=== PATIENT | male | born 1955 | race Caucasian/White ===

== ENCOUNTER 2017-01-11 03:07 | Inpatient (IN) | payer OTHER ==
[2017-01-11] VITALS (23 sets, daily range): BP systolic 66–130; BP diastolic 41–79
[~2017-01-11] VITALS: Ht 165.1 cm; Wt 74.4 kg
--- NOTE | 2017-01-11 04:40 | ED NURSING NOTES ---
Clinical Report - Nurses [facility] [address] [place] [address] 01/11/2017 3:08 Patient: MONA BERNAL TRIAGE Triage time 03:09. Acuity: LEVEL 3. Chief Complaint: VOMITING and (vomited blood). Alert. No acute distress. SEPSIS SCREEN: Sepsis Screen. Negative (no infection suspected/documented). --03:16 Jatinder Perdomo R.N. 03:09 01/11/17. BP: 133/82. HR: 75. RR: 20. O2 saturation: 100%. Temp: 97.8 F. Pain level now: 0/10. --03:16 Jatinder Perdomo R.N. Weight: 68 kg stated. Height/Length: 65 inches Per Patient. BMI: 25. --03:17 Jatinder Perdomo R.N. Medications Tramadol HCL Oral. --03:13 Jatinder Perdomo R.N. Unknown Blood Pressure Medicine. --03:14 Jatinder Perdomo R.N. Unknown GERD medicine. --03:15 Jatinder Perdomo R.N. Allergies Penicillins. --03:12 Jatinder Perdomo R.N. History Arrived by EMS, and (63). Historian: patient. Unaccompanied. This started just prior to arrival and today. He has had nausea and vomiting. ( dizzy). SOCIAL HX: Former smoker. History of drug use: heroin. Is a recovering addict. --03:16 Jatinder Perdomo R.N. PROBLEMS: Gastroesophageal Reflux Disease. Esophageal Varices. Cirrhosis. Hepatitis. --03:15 Jatinder Perdomo R.N. ADDITIONAL SURGERIES: Cholecystectomy. Esophageal varicies banding. Fracture Repair. Hernia Repair. --03:15 Jatinder Perdomo R.N. Interventions ID band on patient. To treatment room. --03:16 Jatinder Perdomo R.N. PHYSICAL ASSESSMENT ( dried blood observed around mouth of patient). GENERAL / NEURO / PSYCH: Alert. Oriented X 4. RESPIRATORY: Respirations not labored. GI / : Abdomen soft. SKIN: Skin is warm and dry. --03:17 Jatinder Perdomo R.N. 03:45 01/11/17. O2 saturation: 96% on room air. --03:48 Jatinder Perdomo R.N. 03:48 01/11/17. O2 saturation: 99% on nasal cannula at 2 liters/minute. O2 started via nasal cannula at 2 liters/minute. --03:48 Jatinder Perdomo R.N. CVS: Normal sinus rhythm noted. ( Normal sinus rhythm on desk monitor). SKIN: Skin is pale. Skin is warm and dry. --03:49 Jatinder Perdomo R.N. 04:57 01/11/17. BP: 113/69. HR: 67 (regular). RR: 18. O2 saturation: 99% on nasal cannula at 2 liters/minute. --04:58 Jatinder Perdomo R.N. NURSING PROGRESS NOTES Pulse oximeter and NIBP monitor placed on patient. Patient gowned. Head of bed elevated. Reassurance given. Two patient identifiers checked. Call light placed in reach. Side rails up x 1. Bed placed in lowest position. Brakes of bed on. Patient ready for evaluation- chart flagged. Patient waiting for evaluation. --03:18 Jatinder Perdomo R.N. EKG time: (03:18 Jan 11 2017). EKG was performed by a tech and shown to the ED physician. --03:20 Bacilio Palmer 04:14 01/01/17. --04:15 Clem Jimenes R.N. 03:18 01/11/2017 Site #2 started via IV in the left forearm with an 18g angiocath, with aseptic technique and good blood return; one attempt. Saline lock flushed with 10 mL saline. --04:13 Clem Jimenes R.N. 03:31 01/11/2017 Site #1 started prior to arrival by EMS via IV in the right hand with an 18g angiocath, with good blood return. Blood drawn: rainbow set. Labeled in the presence of the patient and sent to the lab. --03:41 Jatinder Perdomo R.N. 03:31 01/11/2017 PROTONIX (Pantoprazole Sodium) IVP 80 mg given over 5 minute(s) via site #1. Allergies verified and confirmed 5 rights. IV patency established. IV site checked: no pain, redness, or swelling. IV flushed thoroughly pre- and post-medication administration. IVP given by RN. --03:41 Jatinder Perdomo R.N. 03:34 01/11/2017 Zofran (Ondansetron HCl) IVP 8 mg given over 2 minute(s) via site #1. Allergies verified and confirmed 5 rights. IV patency established. IV site checked: no pain, redness, or swelling. IV flushed thoroughly pre- and post-medication administration. --03:42 Jatinder Perdomo R.N. 03:41 01/11/2017 Started bag #1 1000 mL IV Fluids IV NS (Saline); at 1000 mL/hr over 1 hour(s) via site #1. Allergies verified and confirmed 5 rights. IV patency established. IV site checked: no pain, redness, or swelling. IV flushed thoroughly pre- and post-medication administration. Completed per protocol. --03:41 Jatinder Perdomo R.N. ( Octreotide requested from the housekeeper supervisor---med not stocked in ER.). --03:43 Jatinder Perdomo R.N. 04:00 01/11/2017 Octreotide (Octreotide Acetate) IVP 50 mcg given over 2 minute(s) via site #1. Allergies verified and confirmed 5 rights. IV patency established. IV site checked: no pain, redness, or swelling. IV flushed thoroughly pre- and post-medication administration. --04:02 Clem Jimenes R.N. 04:02 01/11/2017 Started 300 mcg of Octreotide (Octreotide Acetate) Drip IV in bag #1 250 mL; at 50 mcg/hr over 6 hour(s) via site #1 via IV pump. Allergies verified and confirmed 5 rights. IV patency established. IV site checked: no pain, redness, or swelling. IV flushed thoroughly pre- and post-medication administration. --04:04 Clem Jimenes R.N. 04:12 01/11/2017 Dilaudid (HYDROmorphone HCl PF) IVP 0.5 mg given over 2 minute(s) via site #2. Allergies verified, confirmed 5 rights and sedative warning given to the patient. IV patency established. IV site checked: no pain, redness, or swelling. IV flushed thoroughly pre- and post-medication administration. --04:14 Clem Jimenes R.N. 02:45 01/11/17. BP: 133/82. RR: 16. O2 saturation: 100% on room air. --05:07 Clem Jimenes R.N. --05:07 Clem Jimenes R.N. 03:45 01/11/17. BP: 117/65. HR: 69. RR: 17. O2 saturation: 100% on room air. --05:08 Clem Jimenes R.N. 04:15 01/11/17. BP: 118/69. HR: 68. RR: 16. O2 saturation: 100% on room air. --05:09 Clem Jimenes R.N. 04:45 01/11/17. BP: 113/69. HR: 65. RR: 16. O2 saturation: 99% on room air. --05:10 Clem Jimenes R.N. 04:41 01/11/2017 IV Fluids IV NS Discontinued: completed. Total amount infused: 1000 mL. IV patency established. IV site checked: no pain, redness, or swelling. IV flushed thoroughly. --05:57 Jatinder Perdomo R.N. 05:25 01/11/2017 Octreotide Drip IV Continued: upon admission at the rate of 50 mcg/hr bag #1. IV patency established. IV site checked: no pain, redness, or swelling. IV flushed thoroughly. --05:59 Jatinder Perdomo R.N. DISPOSITION / DISCHARGE Cardiac rhythm: (NSR). Departure time: 524. Condition at departure: critical. Reviewed medication(s). Treatments reviewed. Patient verbalized understanding. Admitted to the Critical Care Unit (to [facility] care, bed 306). Transported via stretcher by nurse with monitor and O2. Report was given to a nurse via a phone call. Report included patient's care, treatment, medications, reviewed medication reconcilliation, and condition (including any recent changes or anticipated changes). All questions were answered. Report was acknowledged. ( [place] [id number]). Patient's personal items include: shirt, pants, socks, shoes, wallet and cell phone, a lópez colored box; items were transported with the patient. --05:53 Jatinder Perdomo R.N. 04:57 01/11/17. BP: 113/69. HR: 67 (regular). RR: 18. O2 saturation: 99% on nasal cannula at 2 liters/minute. --05:56 Jatinder Perdomo R.N. Locked/Released at 01/11/2017 5:59 by Jatinder Perdomo R.N.
--- NOTE | 2017-01-11 04:40 | ED ORDER SUMMARY ---
..... Patient: MONA BERNAL OrderSheet [facility] VisitID: [id number] [place] [address] 61y, M Registration Date/Time: 01/11/2017 ORDER SHEET Weight: 68.0 kg (stated) Allergies: Penicillins GENERAL ORDERS: Printing Plate Clerk (Continuous) (03:01/11/2017 Sabina LAMA) (3:41 DDavis R.N.) CBC w Diff Urgent (03:01/11/2017 Sabina LAMA) (3:41 DDavis R.N.) CMP Urgent (:01/11/2017 Sabina LAMA) (3:41 DDavis R.N.) PT with INR Urgent (:01/11/2017 Sabina LAMA) (3:41 DDavis R.N.) Type & Screen Urgent (:01/11/2017 Sabina LAMA) (3:41 DDavis R.N.) Pulse oximeter (:01/11/2017 Sabina LAMA) (3:41 DDavis R.N.) EKG - ER Stat (:01/11/2017 Sabina LAMA) (3:41 DDavis R.N.) Oxygen (2 L/min) (NC) (:01/11/2017 Sabina LAMA) (3:42 DDavis R.N.) MEDICATION ORDERS: - (Octreotide 50 mcg IV bolus, then 50 mcg/hr infusion) (03:01/11/2017 Sabina LAMA) (Ack 3:42 DDavis R.N.) (4:02 JQuivey R.N.) IV FLUIDS: IV NS : initial bolus 1000 mL (1000 mL/hr), then none - (NOW) (03:01/11/2017 Sabina LAMA) (3:41 DDavis R.N.) Zofran IV 8 mg (NOW) (:01/11/2017 Sabina LAMA) (3:42 DDavis R.N.) Protonix IVP 80mg 80 mg (Mix in NS 20ml over 4min) (:01/11/2017 Sabina LAMA) (3:41 DDavis R.N.) Dilaudid IV 0.5 mg (HIGH ALERT MEDICATION, NOW) (04:07 01/11/2017 Cj Gonzalez verbal order read back to Sabina LAMA) (Ack 4:07 Cj R.N.) (4:14 Cj Guy.N.) ORDER SHEET NOTES: [Electronically signed by Ro Luciano MD (05:17 01/11/2017)] [Electronically signed by Jatinder Perdomo R.N. (05:59 01/11/2017)] [Electronically locked/signed by Jatinder Perdomo R.N. (05:59 01/11/2017)]
--- NOTE | 2017-01-11 04:40 | ED CLINICAL REPORT ---
Clinical Report - Physicians/Mid Levels [facility] [address] [place] [address] 01/11/2017 3:08 Patient: MONA BERNAL Time Seen: 0308. Arrived- By ambulance. Historian- patient and EMS personnel. HISTORY OF PRESENT ILLNESS Chief Complaint: VOMITING BLOOD. This started just prior to arrival, has been moderate and is still present but is better now. The patient has not had dark stools, rectal bleeding or pain or hard stools. He has had nausea, vomiting and abdominal pain. No constipation or diarrhea. (Pt has a h/o esophageal varices, due to former hepatitis (pt states he went through treatment with [facility], and is now considered cured). Pt has residual cirrhosis and esophageal varices. 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 He states this is the same as when he had his variceal bleed previously. He pulled over and vomited several times. Medics estimate about 400-500 cc of bloody emesis on scene, but no further emesis since. Pt states he is feeling a little better. He denies complications after his banding procedure one week ago.). No recent travel. Similar symptoms previously: Recent medical care: The patient was seen recently at another facility. ( Pt had his 3rd banding procedure 1 week ago, at which time 1 vessel was banded (pt has had a total of 12 vessels banded on the previous 2 procedures, both of which have been done since April of 2016).). REVIEW OF SYSTEMS The patient has had dizziness. No fainting episodes, weakness, fever, blurred vision or sore throat. No epistaxis, cough, difficulty breathing, chest pain or hematuria. No skin rash, enlarged lymph nodes, chills or joint pain. All systems otherwise negative, except as recorded above. PAST HISTORY Problems: Gastroesophageal Reflux Disease. Esophageal Varices. Cirrhosis. Hepatitis. Additional Surgeries: Cholecystectomy. Esophageal varicies banding. Fracture Repair. Hernia Repair. Medications: Unknown GERD medicine. Unknown Blood Pressure Medicine. Tramadol HCL Oral. Allergies: Penicillins. SOCIAL HISTORY Former smoker. History of IV drug use: heroin. Is a recovering addict. ADDITIONAL NOTES The nursing notes have been reviewed. PHYSICAL EXAM Vital Signs: 01/11/2017 03:09 BP: 133/82. HR: 75. RR: 20. O2 saturation: 100%. Temp: 97.8 F. Pain level now: 0/10. 01/11/2017 02:45 BP: 133/82. RR: 16. O2 saturation: 100%. Have been reviewed. Appearance: Alert. Oriented X3. No acute distress. (PT appears mildly pale and slightly tremulous.). Eyes: Pupils equal, round and reactive to light. Eyes normal inspection. ENT: Nose normal. Neck: Normal inspection. CVS: Normal heart rate and rhythm. Heart sounds normal. Pulses normal. Respiratory: No respiratory distress. Breath sounds normal. Abdomen: Soft. Mild tenderness in the epigastric area. No guarding or rebound tenderness. Back: Normal inspection. No CVA tenderness. Skin: Skin warm and dry. No rash. Normal skin turgor. Slight pallor. Extremities: Extremities exhibit normal ROM. No lower extremity edema. Neuro: Oriented X 3. No motor deficit. No sensory deficit. LABS, X-RAYS, AND EKG EKG: EKG time: (0319). Normal sinus rhythm. Rate: 79. Normal P waves. Normal DEANA. Normal QRS complex. Normal axis. Normal QT and QTc. Non-specific ST segment / T wave abnormalities. Prior EKG unavailable. The study has been interpreted contemporaneously by me. The study has been independently viewed by me. The EKG appears to be a good tracing. I agree with and confirm the computer reading of the EKG. Laboratory Tests: CBC w Diff: (ARNULFO: 01/11/2017 03:25) ( MsgRcvd 01/11/2017 03:39) Final results Test Result Flag Units (Reference) WHITE BLOOD COUNT 3.3 L K/uL (4.5-11.5) RED BLOOD COUNT 3.45 L M/uL (4.50-5.90) HEMOGLOBIN 10.1 L gm/dL (13.5-17.5) HEMATOCRIT 30.6 L % (41.0-53.0) MEAN CELL VOLUME 89 fL (80-100) MEAN CORPUSCULAR HGB 29 pg (26-34) MEAN CORPUSCULAR HGB CONC 33 g/dL (31-37) RED CELL DISTRIBUTION WIDTH 15.5 H % (11.6-14.8) PLATELET COUNT 88 L K/uL (150-400) NEUTROPHIL % 64.6 % (50-75) LYMPH % 22.8 L % (25-40) MONO % 9.0 % (3-14) EOSINOPHIL % 3.3 % (0-4) BASOPHIL % 0.3 % (0-2) PT with INR: (ARNULFO: 01/11/2017 03:25) ( [facility] 01/11/2017 03:46) Final results Test Result Flag Units (Reference) INR 1.3 H (0.8-1.2) Low Intensity Therapy: INR 1.5-2.0 PT range 18.5-23.1Mod.Intensity Therapy: INR 2.0-3.0 PT range 23.1-31.5High Intensity Therapy: INR 2.5-3.5 PT range 27.4-35.5High Intensity Therapy 2: INR 3.0-4.0 PT range 31.5-39.3 CMP: (ARNULFO: 01/11/2017 03:25) ( [facility] 01/11/2017 04:05) Final results Test Result Flag Units (Reference) GLUCOSE 117 H mg/dL (70-110) BUN 25 H mg/dL (7-18) CREATININE 0.9 mg/dL (0.6-1.3) Estimated GFR >60 mL/min Estimated GFR- >60 mL/min Note: Persistent reduction over 3 months in eGFR<60 mL/min/1.73 m2 defines CKD. Patients with eGFR values>=60 mL/min/1.73 m2 may also have CKD if evidence ofpersistent proteinuria. Additional information may be foundat www.kidney.org. SODIUM 147 H mmol/L (136-145) POTASSIUM 3.5 mmol/L (3.5-5.1) CHLORIDE 113 H mmol/L (98-107) CARBON DIOXIDE 24 mmol/L (21-32) CALCIUM 8.2 L mg/dL (8.5-10.1) TOTAL PROTEIN 6.0 L g/dL (6.4-8.2) ALBUMIN 2.9 L g/dL (3.3-5.0) BILIRUBIN, TOTAL 0.3 mg/dL (0.0-1.0) ALKALINE PHOSPHATASE 67 U/L (46-116) AST (SGOT) 13 L U/L (15-37) ALT (SGPT) 17 U/L (12-78) Type & Screen: (ARNULFO: 01/11/2017 03:25) ( MsgRcvd 01/11/2017 04:08) Final results Test Result Flag Units (Reference) PATIENT BLOOD TYPE O Positive ANTIBODY SCREEN NEGATIVE . Pulse Oximetry: 01/11/2017 03:09 O2 saturation: 100%. (FIO2 - room air). Interpretation: normal. PROGRESS AND PROCEDURES Course of Care: Pt was given a liter of NS, Zofran, and an Octreotide drip. He remained stable in the ED, and had no further episodes of vomiting. He was also given a small dose of Dilaudid. Pt was found to be moderately anemic at 10.1, and thrombocytopenic at 88. I did feel the pt should be admitted for observation. Discussed case with on-call health care provider, (Imani). Reviewed test results and need for additional work-up. Agreed upon treatment plan and decision to admit. Health care provider will see patient in hospital. Refers case to other health care provider. Discussed case with hospitalist, (Niraj). Reviewed test results and need for additional work-up. Agreed upon treatment plan and decision to admit. Health care provider will see patient in hospital. Patient counseled in person regarding the patient's stable but serious condition, test results, diagnosis and need for additional testing and admission. Concerns were addressed. Old medical records reviewed. Disposition: Admitted to Acute Care. Condition: stable and serious. CLINICAL IMPRESSION Major GI bleed with hematemesis. Esophageal varices with GI bleed. (Electronically signed by Ro Luciano MD 01/11/2017 5:17)
--- NOTE | 2017-01-11 04:40 | ED NURSING NOTES ---
Clinical Report - Nurses [facility] [address] [place] [address] 01/11/2017 3:08 Patient: MONA BERNAL TRIAGE Triage time 03:09. Acuity: LEVEL 3. Chief Complaint: VOMITING and (vomited blood). Alert. No acute distress. SEPSIS SCREEN: Sepsis Screen. Negative (no infection suspected/documented). --03:16 Jatinder Perdomo R.N. 03:09 01/11/17. BP: 133/82. HR: 75. RR: 20. O2 saturation: 100%. Temp: 97.8 F. Pain level now: 0/10. --03:16 Jatinder Perdomo R.N. Weight: 68 kg stated. Height/Length: 65 inches Per Patient. BMI: 25. --03:17 Jatinder Perdomo R.N. Medications Tramadol HCL Oral. --03:13 Jatinder Perdomo R.N. Unknown Blood Pressure Medicine. --03:14 Jatinder Perdomo R.N. Unknown GERD medicine. --03:15 Jatinder Perdomo R.N. Allergies Penicillins. --03:12 Jatinder Perdomo R.N. History Arrived by EMS, and (63). Historian: patient. Unaccompanied. This started just prior to arrival and today. He has had nausea and vomiting. ( dizzy). SOCIAL HX: Former smoker. History of drug use: heroin. Is a recovering addict. --03:16 Jatinder Perdomo R.N. PROBLEMS: Gastroesophageal Reflux Disease. Esophageal Varices. Cirrhosis. Hepatitis. --03:15 Jatinder Perdomo R.N. ADDITIONAL SURGERIES: Cholecystectomy. Esophageal varicies banding. Fracture Repair. Hernia Repair. --03:15 Jatinder Perdomo R.N. Interventions ID band on patient. To treatment room. --03:16 Jatinder Perdomo R.N. PHYSICAL ASSESSMENT ( dried blood observed around mouth of patient). GENERAL / NEURO / PSYCH: Alert. Oriented X 4. RESPIRATORY: Respirations not labored. GI / : Abdomen soft. SKIN: Skin is warm and dry. --03:17 Jatinder Perdomo R.N. 03:45 01/11/17. O2 saturation: 96% on room air. --03:48 Jatinder Perdomo R.N. 03:48 01/11/17. O2 saturation: 99% on nasal cannula at 2 liters/minute. O2 started via nasal cannula at 2 liters/minute. --03:48 Jatinder Perdomo R.N. CVS: Normal sinus rhythm noted. ( Normal sinus rhythm on data analyst etl developer). SKIN: Skin is pale. Skin is warm and dry. --03:49 Jatinder Perdomo R.N. 04:57 01/11/17. BP: 113/69. HR: 67 (regular). RR: 18. O2 saturation: 99% on nasal cannula at 2 liters/minute. --04:58 Jatinder Perdomo R.N. NURSING PROGRESS NOTES Pulse oximeter and NIBP monitor placed on patient. Patient gowned. Head of bed elevated. Reassurance given. Two patient identifiers checked. Call light placed in reach. Side rails up x 1. Bed placed in lowest position. Brakes of bed on. Patient ready for evaluation- chart flagged. Patient waiting for evaluation. --03:18 Jatinder Perdomo R.N. EKG time: (03:18 Jan 11 2017). EKG was performed by a tech and shown to the ED physician. --03:20 Bacilio Palmer 04:14 01/01/17. --04:15 Clem Jimenes R.N. 03:18 01/11/2017 Site #2 started via IV in the left forearm with an 18g angiocath, with aseptic technique and good blood return; one attempt. Saline lock flushed with 10 mL saline. --04:13 Clem Jimenes R.N. 03:31 01/11/2017 Site #1 started prior to arrival by EMS via IV in the right hand with an 18g angiocath, with good blood return. Blood drawn: rainbow set. Labeled in the presence of the patient and sent to the lab. --03:41 Jatinder Perdomo R.N. 03:31 01/11/2017 PROTONIX (Pantoprazole Sodium) IVP 80 mg given over 5 minute(s) via site #1. Allergies verified and confirmed 5 rights. IV patency established. IV site checked: no pain, redness, or swelling. IV flushed thoroughly pre- and post-medication administration. IVP given by RN. --03:41 Jatinder Perdomo R.N. 03:34 01/11/2017 Zofran (Ondansetron HCl) IVP 8 mg given over 2 minute(s) via site #1. Allergies verified and confirmed 5 rights. IV patency established. IV site checked: no pain, redness, or swelling. IV flushed thoroughly pre- and post-medication administration. --03:42 Jatinder Perdomo R.N. 03:41 01/11/2017 Started bag #1 1000 mL IV Fluids IV NS (Saline); at 1000 mL/hr over 1 hour(s) via site #1. Allergies verified and confirmed 5 rights. IV patency established. IV site checked: no pain, redness, or swelling. IV flushed thoroughly pre- and post-medication administration. Completed per protocol. --03:41 Jatinder Perdomo R.N. ( Octreotide requested from the warehouse examiner---med not stocked in ER.). --03:43 Jatinder Perdomo R.N. 04:00 01/11/2017 Octreotide (Octreotide Acetate) IVP 50 mcg given over 2 minute(s) via site #1. Allergies verified and confirmed 5 rights. IV patency established. IV site checked: no pain, redness, or swelling. IV flushed thoroughly pre- and post-medication administration. --04:02 Clem Jimenes R.N. 04:02 01/11/2017 Started 300 mcg of Octreotide (Octreotide Acetate) Drip IV in bag #1 250 mL; at 50 mcg/hr over 6 hour(s) via site #1 via IV pump. Allergies verified and confirmed 5 rights. IV patency established. IV site checked: no pain, redness, or swelling. IV flushed thoroughly pre- and post-medication administration. --04:04 Clem Jimenes R.N. 04:12 01/11/2017 Dilaudid (HYDROmorphone HCl PF) IVP 0.5 mg given over 2 minute(s) via site #2. Allergies verified, confirmed 5 rights and sedative warning given to the patient. IV patency established. IV site checked: no pain, redness, or swelling. IV flushed thoroughly pre- and post-medication administration. --04:14 Clem Jimenes R.N. 02:45 01/11/17. BP: 133/82. RR: 16. O2 saturation: 100% on room air. --05:07 Clem Jimenes R.N. --05:07 Clem Jimenes R.N. 03:45 01/11/17. BP: 117/65. HR: 69. RR: 17. O2 saturation: 100% on room air. --05:08 Clem Jimenes R.N. 04:15 01/11/17. BP: 118/69. HR: 68. RR: 16. O2 saturation: 100% on room air. --05:09 Clem Jimenes R.N. 04:45 01/11/17. BP: 113/69. HR: 65. RR: 16. O2 saturation: 99% on room air. --05:10 Clem Jimenes R.N. 04:41 01/11/2017 IV Fluids IV NS Discontinued: completed. Total amount infused: 1000 mL. IV patency established. IV site checked: no pain, redness, or swelling. IV flushed thoroughly. --05:57 Jatinder Perdomo R.N. 05:25 01/11/2017 Octreotide Drip IV Continued: upon admission at the rate of 50 mcg/hr bag #1. IV patency established. IV site checked: no pain, redness, or swelling. IV flushed thoroughly. --05:59 Jatinder Perdomo R.N. DISPOSITION / DISCHARGE Cardiac rhythm: (NSR). Departure time: 524. Condition at departure: critical. Reviewed medication(s). Treatments reviewed. Patient verbalized understanding. Admitted to the Critical Care Unit (to [facility] care, bed 306). Transported via stretcher by nurse with monitor and O2. Report was given to a nurse via a phone call. Report included patient's care, treatment, medications, reviewed medication reconcilliation, and condition (including any recent changes or anticipated changes). All questions were answered. Report was acknowledged. ( [place] [phone]). Patient's personal items include: shirt, pants, socks, shoes, wallet and cell phone, a lópez colored box; items were transported with the patient. --05:53 Jatinder Perdomo R.N. 04:57 01/11/17. BP: 113/69. HR: 67 (regular). RR: 18. O2 saturation: 99% on nasal cannula at 2 liters/minute. --05:56 Jatinder Perdomo R.N. Locked/Released at 01/11/2017 5:59 by Jatinder Perdomo R.N.
--- NOTE | 2017-01-11 04:40 | ED ORDER SUMMARY ---
..... Patient: MONA BERNAL OrderSheet [facility] VisitID: [id number] [place] [address] 61y, M Registration Date/Time: 01/11/2017 ORDER SHEET Weight: 68.0 kg (stated) Allergies: Penicillins GENERAL ORDERS: File Conversion Operator (Continuous) (03:01/11/2017 Sabina LAMA) (3:41 DDavis R.N.) CBC w Diff Urgent (03:01/11/2017 Sabina LAMA) (3:41 DDavis R.N.) CMP Urgent (:01/11/2017 Sabina LAMA) (3:41 DDavis R.N.) PT with INR Urgent (:01/11/2017 Sabina LAMA) (3:41 DDavis R.N.) Type & Screen Urgent (:01/11/2017 Sabina LAMA) (3:41 DDavis R.N.) Pulse oximeter (:01/11/2017 Sabina LAMA) (3:41 DDavis R.N.) EKG - ER Stat (:01/11/2017 Sabina LAMA) (3:41 DDavis R.N.) Oxygen (2 L/min) (NC) (:01/11/2017 Sabina LAMA) (3:42 DDavis R.N.) MEDICATION ORDERS: - (Octreotide 50 mcg IV bolus, then 50 mcg/hr infusion) (03:01/11/2017 Sabina LAMA) (Ack 3:42 DDavis R.N.) (4:02 JQuivey R.N.) IV FLUIDS: IV NS : initial bolus 1000 mL (1000 mL/hr), then none - (NOW) (03:01/11/2017 Sabina LAMA) (3:41 DDavis R.N.) Zofran IV 8 mg (NOW) (:01/11/2017 Sabina LAMA) (3:42 DDavis R.N.) Protonix IVP 80mg 80 mg (Mix in NS 20ml over 4min) (:01/11/2017 Sabina LAMA) (3:41 DDavis R.N.) Dilaudid IV 0.5 mg (HIGH ALERT MEDICATION, NOW) (04:07 01/11/2017 Cj Gonzalez verbal order read back to Sabina LAMA) (Ack 4:07 Cj R.N.) (4:14 Cj Guy.N.) ORDER SHEET NOTES: [Electronically signed by Ro Luciano MD (05:17 01/11/2017)] [Electronically signed by Jatinder Perdomo R.N. (05:59 01/11/2017)] [Electronically locked/signed by Jatinder Perdomo R.N. (05:59 01/11/2017)]
--- NOTE | 2017-01-11 05:59 | ED MED RECONCILIATION SUMMARY ---
Patient: MONA BERNAL Medication Reconciliation Report [facility] VisitID: [id number] [address] [place] [address] 61y, M Registration Date/Time: 01/11/2017 Weight: 68.0 kg Height/Length: 65 in. BMI: 25.0 ALLERGIES: Penicillins The patient's Home Medications are listed below: THE FOLLOWING MEDICATIONS NEED TO BE RECONCILED: Tramadol HCL Oral Unknown Blood Pressure Medicine Unknown GERD medicine The source(s) of the original Home Medication information: Not obtained. The following Medications were given to the patient in the Emergency Department: IV NS IV Fluids bolus 0, then 1000 mL/hr, administered: 01/11/2017 3:41:00 AM PROTONIX [IVP] IVP 80 mg, administered: 01/11/2017 3:31:00 AM Zofran [IVP] IVP 8 mg, administered: 01/11/2017 3:34:00 AM Octreotide [IVP] IVP 50 mcg, administered: 01/11/2017 4:00:00 AM Octreotide [IV Drip] Drip IV bolus 0, then 300 mcg 50 mcg/hr, administered: 01/11/2017 4:02:00 AM Dilaudid [IVP] IVP 0.5 mg, administered: 01/11/2017 4:12:00 AM The following Medications were prescribed to the patient: None.
--- NOTE | 2017-01-11 05:59 | ED DISCHARGE INSTRUCTIONS ---
Patient: MONA BERNAL General Instructions [facility] VisitID: [id number] [address] [place] [address] 61y, M Registration Date/Time: 01/11/2017 Major GI bleed with hematemesis. Esophageal varices with GI bleed. (Electronically signed by Ro Luciano MD 01/11/2017 5:17)
--- NOTE | 2017-01-11 05:59 | ED DISCHARGE INSTRUCTIONS ---
Patient: MONA BERNAL General Instructions [facility] VisitID: [id number] [address] [place] [address] 61y, M Registration Date/Time: 01/11/2017 Major GI bleed with hematemesis. Esophageal varices with GI bleed. (Electronically signed by Ro Luciano MD 01/11/2017 5:17)
--- NOTE | 2017-01-11 05:59 | ED MAR SUMMARY ---
..... Medication Administration Record [facility] [address] [place] [address] Patient: MONA BERNAL Visit ID: [id number] 61y, M Weight: 68.0 kg Height/Length: 65 in BMI: 25 ALLERGIES: Penicillins Given 03:31 01/11/2017 Jatinder Perdomo R.N. Medication Administered: PROTONIX [IVP] (PANTOPRAZOLE SODIUM), Dose: 80 mg IVP over 5 minute(s), Site: #1 right hand. Medication Ordered: Protonix IVP 80mg 80 mg (Mix in NS 20ml over 4min). Given 03:34 01/11/2017 Jatinder Perdomo R.N. Medication Administered: ZOFRAN [IVP] (ONDANSETRON HCL), Dose: 8 mg IVP over 2 minute(s), Site: #1 right hand. Medication Ordered: Zofran IV 8 mg (NOW). Start 03:41 01/11/2017 Jatinder Perdomo R.N., Stop 04:41 01/11/2017 Jatinder Perdomo R.N. Medication Administered: IV NS (SALINE), Dose: IV Fluids over 1 hour(s), Rate: 1000 mL/hr, Dispensed: 1000 mL bag, Site: #1 right hand. Medication Ordered: IV NS : initial bolus 1000 mL (1000 mL/hr), then none - (NOW). Given 04:00 01/11/2017 Clem Jimenes R.N. Medication Administered: OCTREOTIDE [IVP] (OCTREOTIDE ACETATE), Dose: 50 mcg IVP over 2 minute(s), Site: #1 right hand. Medication Ordered: - (Octreotide 50 mcg IV bolus, then 50 mcg/hr infusion). Start 04:02 01/11/2017 Clem Jimenes R.N., Continued Upon Admission 05:25 01/11/2017 Jatinder Perdomo R.N. Medication Administered: OCTREOTIDE [IV DRIP] (OCTREOTIDE ACETATE), Dose: 300 mcg Drip IV over 6 hour(s), Rate: 50 mcg/hr, Dispensed: 250 mL bag, Site: #1 right hand. Medication Ordered: - (Octreotide 50 mcg IV bolus, then 50 mcg/hr infusion). Given 04:12 01/11/2017 Clem Jimenes RLeathaN. Medication Administered: DILAUDID [IVP] (HYDROMORPHONE HCL PF), Dose: 0.5 mg IVP over 2 minute(s), Site: #2 left forearm. Medication Ordered: Dilaudid IV 0.5 mg (HIGH ALERT MEDICATION, NOW).
--- NOTE | 2017-01-11 05:59 | ED MAR SUMMARY ---
..... Medication Administration Record [facility] [address] [place] [address] Patient: MONA BERNAL Visit ID: [id number] 61y, M Weight: 68.0 kg Height/Length: 65 in BMI: 25 ALLERGIES: Penicillins Given 03:31 01/11/2017 Jatinder Perdomo R.N. Medication Administered: PROTONIX [IVP] (PANTOPRAZOLE SODIUM), Dose: 80 mg IVP over 5 minute(s), Site: #1 right hand. Medication Ordered: Protonix IVP 80mg 80 mg (Mix in NS 20ml over 4min). Given 03:34 01/11/2017 Jatinder Perdomo R.N. Medication Administered: ZOFRAN [IVP] (ONDANSETRON HCL), Dose: 8 mg IVP over 2 minute(s), Site: #1 right hand. Medication Ordered: Zofran IV 8 mg (NOW). Start 03:41 01/11/2017 Jatinder Perdomo R.N., Stop 04:41 01/11/2017 Jatinder Perdomo R.N. Medication Administered: IV NS (SALINE), Dose: IV Fluids over 1 hour(s), Rate: 1000 mL/hr, Dispensed: 1000 mL bag, Site: #1 right hand. Medication Ordered: IV NS : initial bolus 1000 mL (1000 mL/hr), then none - (NOW). Given 04:00 01/11/2017 Clem Jimenes R.N. Medication Administered: OCTREOTIDE [IVP] (OCTREOTIDE ACETATE), Dose: 50 mcg IVP over 2 minute(s), Site: #1 right hand. Medication Ordered: - (Octreotide 50 mcg IV bolus, then 50 mcg/hr infusion). Start 04:02 01/11/2017 Clem Jimenes R.N., Continued Upon Admission 05:25 01/11/2017 Jatinder Perdomo R.N. Medication Administered: OCTREOTIDE [IV DRIP] (OCTREOTIDE ACETATE), Dose: 300 mcg Drip IV over 6 hour(s), Rate: 50 mcg/hr, Dispensed: 250 mL bag, Site: #1 right hand. Medication Ordered: - (Octreotide 50 mcg IV bolus, then 50 mcg/hr infusion). Given 04:12 01/11/2017 Clem Jimenes RLeathaN. Medication Administered: DILAUDID [IVP] (HYDROMORPHONE HCL PF), Dose: 0.5 mg IVP over 2 minute(s), Site: #2 left forearm. Medication Ordered: Dilaudid IV 0.5 mg (HIGH ALERT MEDICATION, NOW).
--- NOTE | 2017-01-11 05:59 | ED MED RECONCILIATION SUMMARY ---
Patient: MONA BERNAL Medication Reconciliation Report [facility] VisitID: [id number] [address] [place] [address] 61y, M Registration Date/Time: 01/11/2017 Weight: 68.0 kg Height/Length: 65 in. BMI: 25.0 ALLERGIES: Penicillins The patient's Home Medications are listed below: THE FOLLOWING MEDICATIONS NEED TO BE RECONCILED: Tramadol HCL Oral Unknown Blood Pressure Medicine Unknown GERD medicine The source(s) of the original Home Medication information: Not obtained. The following Medications were given to the patient in the Emergency Department: IV NS IV Fluids bolus 0, then 1000 mL/hr, administered: 01/11/2017 3:41:00 AM PROTONIX [IVP] IVP 80 mg, administered: 01/11/2017 3:31:00 AM Zofran [IVP] IVP 8 mg, administered: 01/11/2017 3:34:00 AM Octreotide [IVP] IVP 50 mcg, administered: 01/11/2017 4:00:00 AM Octreotide [IV Drip] Drip IV bolus 0, then 300 mcg 50 mcg/hr, administered: 01/11/2017 4:02:00 AM Dilaudid [IVP] IVP 0.5 mg, administered: 01/11/2017 4:12:00 AM The following Medications were prescribed to the patient: None.
--- NOTE | 2017-01-11 08:38 | Progress Note ---
Subjective General Note Date: January 11, 2017 Admission Date: January 11, 2017 Hospital Day: 1 PCP: Unknown Status: Inpatient Advanced Directive: Full Code Room: 306 Brief History: The patient is a 61-year-old white male with a significant past mental history of hepatitis C-status post treatment with LOULOU, cirrhosis, esophageal varices status post banding, gastroesophageal reflux who presented to [facility] emergency department on the day of admission secondary to complaints of hematemesis. [facility] ER evaluation was consistent with upper GI bleed secondary to suspected bleeding esophageal varices. Secondary to the above, the patient was admitted by Ifeanyi Healy M.D. for further evaluation and treatment. For other history present illness, past medical history, family history, social history, review of systems, and admission physical examination please see the patient's history and physical examination and ER visit note in the patient's medical record. Subjective: The patient states he is doing well at this time. Mild abdominal discomfort. No other symptomatic complaints. No recurrent bleeding since admission. Awaiting upper endoscopy Patient requests: None Medications and Allergies Medications Current Medications Sig/Ian Start time Last Medication Dose Route Stop Time Status Admin Pantoprazole Sodium 80 MG 0600,1800 01/11 1800 AC IV Octreotide Acetate 300 MCG Q6H 01/11 0930 AC 01/11 Dextrose/Water 250 ML IV 1500 Ceftriaxone Sodium/ 50 ML DAILY 01/11 0845 AC 01/11 Dextrose IV 0914 Hydromorphone HCl 0.5 MG Q2H PRN 01/11 0830 CAN IV Hydromorphone HCl 0.5 MG Q4H PRN 01/11 0815 AC 01/11 IV 0914 Ondansetron HCl 4 MG Q4H PRN 01/11 0500 AC IV Sodium Chloride 1,000 ML ASDIRECTED 01/11 0500 AC 01/11 IV 0706 Allergies Coded Allergies: Bee Venom (Severe, Anaphylaxis 01/11/17) Penicillins (01/11/17) Allergies Penicillins. --03:12 Jatinder Perdomo R.N. Physical Exam Vital Signs / I&Os Vital Signs Date Time Temp Pulse Resp B/P Pulse O2 O2 Flow FiO2 Ox Delivery Rate 01/11 0711 75 17 112/70 98 Room Air 01/11 0554 97.9 69 17 130/79 100 Room Air General Appearance Alert, Oriented X3, Cooperative, No acute distress Lungs Clear to auscultation, Normal air movement Cardiovascular Regular rate and rhythm, Normal S1 and S2 Abdomen Normal bowel sounds, Soft, No tenderness, No guarding Extremities No cyanosis, No clubbing, No edema Neurological Cranial nerves intact, No lateralizing signs Psych/Mental Status Mental status normal, Mood normal LAB Results Laboratory Tests 01/11 0325 Chemistry Plasma Sodium (136 - 145 mmol/L) 147 Plasma Potassium (3.5 - 5.1 mmol/L) 3.5 Plasma Chloride (98 - 107 mmol/L) 113 CO2 (Enzymatic) (21 - 32 mmol/L) 24 BUN (7 - 18 mg/dL) 25 Creatinine (0.6 - 1.3 mg/dL) 0.9 Est GFR ( Amer) (mL/min) >60 Est GFR (Non-Af Amer) (mL/min) >60 Glucose (70 - 110 mg/dL) 117 Plasma Calcium (8.5 - 10.1 mg/dL) 8.2 Total Bilirubin (0.0 - 1.0 mg/dL) 0.3 AST (15 - 37 U/L) 13 ALT (12 - 78 U/L) 17 Alkaline Phosphatase (46 - 116 U/L) 67 Total Protein (6.4 - 8.2 g/dL) 6.0 Albumin (3.3 - 5.0 g/dL) 2.9 Coagulation INR (0.8 - 1.2) 1.3 Hematology WBC (4.5 - 11.5 K/uL) 3.3 RBC (4.50 - 5.90 M/uL) 3.45 Hgb (13.5 - 17.5 gm/dL) 10.1 Hct (41.0 - 53.0 %) 30.6 MCV (80 - 100 fL) 89 MCH (26 - 34 pg) 29 RDW (11.6 - 14.8 %) 15.5 Neut % (Auto) (50 - 75 %) 64.6 Lymph % (Auto) (25 - 40 %) 22.8 [place] % (Auto) (3 - 14 %) 9.0 Eos % (Auto) (0 - 4 %) 3.3 Baso % (Auto) (0 - 2 %) 0.3 Plt Count, EDTA (150 - 400 K/uL) 88 PUBS MCHC (31 - 37 g/dL) 33 Microbiology Date/Time Procedure - Status Source Growth 01/11 0600 MRSA Screen - RECD NASAL Assessment and Plan Problem List 1. Upper GI bleed Plan -The patient presents with findings of upper GI hemorrhage -Patient with known history of gastroesophageal reflux and esophageal varices -Status post recent esophageal variceal banding approximately one week prior to admission -Protonix 40 mg IV twice a day -Octreotide drip -Surgical consultation Dr. Diallo for endoscopy this a.m. with banding as necessary-Dr. Diallo contact by phone this a.m. -Follow serial H&H -Begin prophylactic therapy with Rocephin 1 g IV daily 2. Esophageal varices Plan -See above 3. Anemia Status Acute Onset Date Unknown Plan -Patient with mild anemia secondary to upper GI bleed -We'll check iron studies, B12, folate -Monitor serial H&H Current status: Critical, unstable Anticipated discharge date: Anticipated discharge in 2-3 days Anticipated discharge placement: Home Patient care time: Time spent in chart review, patient interview, physical exam, CPOE, and care documentation: 35 minutes Visit to patient today: 2 Complexity of care: High E&M Codes Rounding: Inpt-Moderate/[id number]
--- NOTE | 2017-01-11 10:08 | DIAGNOSTIC IMAGING REPORT ---
PROCEDURE: XR CHEST 1 VIEW INDICATION: UGI bleed--RO aspiration TECHNIQUE: Portable AP view (0905 hours). COMPARISON: None. FINDINGS: Allowing for overlying wires and electrodes, lungs are clear. Heart and mediastinum are normal. Thorax is normal. IMPRESSION: 1. Negative chest.
--- NOTE | 2017-01-11 13:27 | HISTORY AND PHYSICAL ---
ADMITTED: 01/11/2017 CHIEF COMPLAINT: 1. 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 He was en route from the [facility] to [place] when he suddenly felt nauseated and felt a lot of epigastric pressure. He pulled over his truck to the side of the road and then promptly threw up 4 times a large amount of blood and blood clots. He has had a history of esophageal varices. He felt a little lightheaded and called 911 and was brought in to [facility]. He has been started on an octreotide infusion. He is feeling fairly well at this point and has had no further emesis. He has had no problems with blood in his stool or dark stools. He was feeling quite well earlier in the day. He does have a history of having had hepatitis C and having had alcohol problems and developing some liver cirrhosis. He had this trigger a development of esophageal varices. He had a bleeding episode in 04/2016 and had an EGD done then, which showed a number of esophageal varices. He had about 6 or 7 banded at that point. He had a return visit I believe in May for a recheck and had another 6 or 7 vessels banded. Since then, he has done well. He did see another geodetic advisor about a week and a half ago and had an EGD done, which showed only 1 esophageal varix that needed banding, and this was done. He has felt fine until now. He did have the Harvoni treatment for hepatitis C, and this was effective. He has been avoiding alcohol and drugs and smoking for the last 7 years. MEDICAL/SURGICAL HISTORY: Past medical history: Remarkable for hepatitis C, alcohol abuse and cirrhosis as noted. He has had problems with gallstones. He has had a fracture of his left femur and has had remote problems with hernias, inguinal type. Past surgical procedures are remarkable for placement of rods in the left femoral fracture and subsequent removal of angie, once the fracture was well-healed. He has also had inguinal hernia repairs and has had the cholecystectomy done this last summer and has had the EGDs and esophageal banding procedures as noted. MEDICATIONS: 1. Tramadol ------- for pain. 2. Some type of blood pressure medicine, used to help reduce risk of esophageal bleeding. 3. Some type of prostate medication. 4. Some type of stomach acid medication. He is hoping that his will bring his medicines in when she comes. She will be going from [place]. ALLERGIES: 1. PENICILLIN. 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 He is a former drinker and drug user and has been clean for the last 7 years. He lives in the [place], [place] area. He has a given up smoking as well as drugs and alcohol. FAMILY HISTORY: Remarkable for a mother who at a fairly young age of COPD and alcohol-related problems. The patient really never had any contact with his father. REVIEW OF SYSTEMS: HEENT is okay. Respiratory: Okay, with no chest congestion or cough. Cardiovascular: Okay. Gastrointestinal: As noted above. Genitourinary: Remarkable for some slow urine stream at times, which is improved with medication he takes for urine flow and prostate gland issues. Musculoskeletal is okay, with no major bone or joint problems. Psychiatric: Okay. Neurologic: Okay, with no focal numbness or weakness. PHYSICAL EXAMINATION: GENERAL: Reveals the patient to be a white male in no acute distress. VITAL SIGNS: Blood pressure is in the 130/70 down to the 112/70 range. Pulse is in the 60s-70s. Oxygen saturation 98% to 100%. HEENT: Head is normal. NECK: Supple, without significant adenopathy. CHEST: Clear to auscultation and percussion. There is no axillary adenopathy. HEART: Reveals a normal S1 and S2. There is a grade 1/6 systolic murmur along the left sternal border. ABDOMEN: Remarkable for some mild epigastric tenderness to moderate epigastric tenderness. There is no rebound. GENITALIA: Show normal uncircumcised male. There is no evidence of hernia. RECTAL: Not done. EXTREMITIES: Show no edema. Peripheral pulses are normal. Range of motion is normal. NEUROLOGIC: Reveals the patient to be alert and oriented x3. Cranial nerves are normal. Motor and sensory exams are normal. LAB/IMAGING: Show white blood cell count to be somewhere about 3300. Hemoglobin is 10.1 and hematocrit is 30.6. PT/INR is 1.3. Sodium was 147, potassium 3.5, chloride 113, CO2 is 24, glucose 119, creatinine 0.9, BUN 25. Total bilirubin is 0.3. SGOT is 15, SGPT is 17. IMPRESSION: 1. The patient is presenting with acute upper gastrointestinal bleed which may be due to varices or may be due to stomach ulcer. The patient does have a history of hepatitis C, which has been treated, and alcohol abuse, which is under control. He does have a history of esophageal varices, and this is very likely could be the cause of the bleeding. He may possibly have other causes, and this would be necessary to diagnose. PLAN: The patient is admitted to the hospital. He will continue with the octreotide infusion. He will have hematocrit and hemoglobin checked later on today. Dr. Diallo was asked to consult on the patient to consider EGD today or tomorrow. Additionally, the patient will have a chest x-ray done prior to his procedure to make sure he has not had any aspiration that would be hard to discern on physical exam. He will remain n.p.o. for now.
--- NOTE | 2017-01-11 14:20 | CONSULTATION REPORT ---
DATE OF CONSULTATION: 01/11/2017 CHIEF COMPLAINT: 1. Hematemesis and hematochezia. 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 This man has known treated hepatitis C and residual cirrhosis. He has undergone 3 previous variceal banding procedures including one just a week ago of a single Saenz's. He had a bleed like this before the first esophageal variceal banding. He does not have a known history of peptic ulcer disease, though he does have a history of esophageal reflux. The patient on this occasion vomited voluminously when he came to the hospital a couple times and also passed red blood per rectum, but while I observed him in the ICU for about half an hour the patient did not have any of these same symptoms and looked pretty stable hemodynamically. He got his cirrhosis from a previous drug habit with injected heroin, but has been clean and sober for about 7 years by his statement. His hepatitis been treated with Harvoni and is nondetectable. The patient also reports that there is some lesion in his liver, which is currently being tracked by his doctors in [place], [place]. He has also had decreased appetite over the last few weeks and has lost some weight. The patient reports he has had a total of 12 varices banded thus far since 04/2016. MEDICAL/SURGICAL HISTORY: Past medical history of gastroesophageal reflux disease, esophageal varices, cirrhosis and hepatitis C - treated. Past surgery of laparoscopic cholecystectomy, variceal banding, fracture repair and hernia repair. MEDICATIONS: 1. The patient is on reflux medication, presumably a proton pump inhibitor. 2. He is also on blood pressure medication. 3. He is on Tramadol. ALLERGIES: 1. PENICILLIN. SOCIAL HISTORY: The patient does not smoke cigarettes any more. He is a former heroin addict. He is . 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 FAMILY HISTORY: The patient reports no specific family history of gastrointestinal malignancy. REVIEW OF SYSTEMS: A multipoint review of systems was obtained this morning by Dr. Luciano in the emergency department and is reviewed with the patient at this time. The patient is currently pretty asymptomatic and comfortable. PHYSICAL EXAMINATION: VITAL SIGNS: His blood pressure this morning is 108/63, respirations 16, pulse of 68, O2 saturation 98% on room air. HEENT: His ears and nose demonstrated no gross external lesions. He does not appear to be icteric. NECK: Without palpable masses or thyromegaly. There are no bruits. CHEST: Clear to auscultation. I did not notice any spider vessels on his chest. CARDIOVASCULAR: His heart is regular without murmur or gallop. ABDOMEN: Reveals no evidence of ascites or palpable hepatosplenomegaly. There was no caput medusae noted. Bowel sounds are active. He has some mild discomfort in the epigastrium. EXTREMITIES: Symmetric. He appeared to move without restriction. He appeared to be physically fit. LAB/IMAGING: Lab tests were reviewed. His hematocrit was recorded elsewhere as 30 at the start. His INR was slightly elevated at 1.3. His chemistry showed a bilirubin of 0.3, lower normal liver enzymes, and protein and albumin of 6.0 and 2.9. IMPRESSION: 1. Upper gastrointestinal bleed, most likely variceal. 2. Portal hypertension secondary to hepatitis C induced cirrhosis. 3. Possible liver lesion suggestive of a concern for hepatoma. PLAN: I recommend that the patient be treated as he is in the ICU with an octreotide drip proton pump inhibitors. I plan to do an upper gastrointestinal endoscopy later today and will consider banding or injection sclerotherapy as deemed appropriate.
--- NOTE | 2017-01-11 15:02 | OPERATIVE REPORT ---
DATE OF SURGERY: 01/11/2017 SURGEON: Sudhir Diallo MD PREOPERATIVE DIAGNOSIS: 1. Upper gastrointestinal hemorrhage. POSTOPERATIVE DIAGNOSES: 1. Varicose veins without current active bleeding PROCEDURE PERFORMED: 1. Esophagogastroduodenoscopy ANESTHESIA: Total IV general. INDICATIONS: The patient is a 61-year-old man with esophageal varices and portal hypertension from hepatitis C. He had variceal banding done about a week ago and today vomited blood and had hematochezia. SURGICAL TECHNIQUE: The patient was taken to the operating room, where a general anesthetic was administered and the patient intubated for airway protection. The therapeutic large-bore scope was inserted down the esophagus and into the stomach. During insertion, there was an area in the lower esophagus that showed some grayish tissue-like material. When this was closely examined, this demonstrated a band still visible as well as some extruded clot which was dark and grayish in color, but not bright red. There was no bleeding at this site when was observed on several occasions. The stomach was entered and some old blood was found. This was all rinsed away and there were no gastric bleeding sources found. The pylorus was also entered and the first and second parts of the duodenum examined and there were no signs of active bleeding sources. A retroflexed view also demonstrated no problems. On withdrawal, the varix area was visualized. The lower quarter to one-third of the esophagus demonstrated varices, but none of these had any sites of active or recent bleeding. In conclusion, this patient's most likely source was the banding site that rebled after about a week. There is no current active bleeding and the patient will be managed medically.
--- NOTE | 2017-01-11 17:26 | OPERATIVE REPORT ---
DATE OF SURGERY: 01/11/2017 SURGEON: Sudhir Diallo MD PREOPERATIVE DIAGNOSIS: 1. Recurrent gastrointestinal bleed. POSTOPERATIVE DIAGNOSIS: 1. Variceal hemorrhage. PROCEDURE PERFORMED: 1. Upper gastrointestinal endoscopy with sclerotherapy and placement of endoscopic clips. ANESTHESIA: General. INDICATIONS: The patient is a 61-year-old man who presented with upper GI hemorrhage. He had an esophageal variceal banding about a week ago. He had just undergone endoscopy and was still in the endoscopy lab. At the first endoscopy an area of scarring and damage could be seen from the previous band, but it was not bleeding and the procedure was terminated. Before the patient woke up, the patient began frothing blood at the mouth and the patient was returned to the operating table, having never left the operating suite for this procedure. SURGICAL TECHNIQUE: The therapeutic endoscope was inserted down the esophagus. A large amount of clot was visible up near the GE junction. Suction and irrigation procedures were used to clear the active clot. This revealed that there was a site of active bleeding at the site of the old banding procedure where the trauma could be seen on the lateral wall of the esophagus close to the gastroesophageal junction. This area was somewhat sclerotic and did not lend itself to placement of a band directly over it. Therefore, sclerotherapy with 3 normal saline and 1:10,000 epinephrine was first attempted by injecting sequential injections around the site of active bleeding. This did not result in cessation or reduction in bleeding volume which was quite significant. The therapeutic endoscope was withdrawn and rigged up with a single shot band ligating device. In the meantime, a [place] tube was passed and set into place and inflated. This was left in for about 10 minutes while the other instrumentation was set up. The patient was also returned to his octreotide drip in the meantime. The [place] tube was withdrawn and the endoscope again passed. This demonstrated the site of active bleeding which had only slowed somewhat. The tissue was sucked up as much as possible and 2 bands were attempted, but could not adequately encompass the bleeding site. It seemed like the tissue was too sclerotic to adequately pull up into the clear plastic capsule and the 1 time when tissue was pulled in it seemed to be adjacent varix that came in instead of the actual bleeding source. The change coordinator was then discontinued. At this point, the patient was still hemorrhaging and was requiring transfusion and pressors for blood pressure support. The change coordinator device was removed and the therapeutic endoscope and Resolution Clips ([employer]) were used. These were deployed at 2 different locations. The first 1 was at the bleeding site, but appeared to be proximal to it slightly as there was still bleeding above it and the second clip was then placed above it. Once the second clip was in place the active fountaining of blood stopped and this seemed to have achieved the hemostasis that was required. This area was carefully observed and irrigated for some time to ensure that the adequacy of hemostasis, following which the endoscope was withdrawn. I discussed this current situation with Dr. Romero, our stationary plant operators. In this situation, I recommended that the patient be left on the standard medical therapeutics. We will send him up intubated to the ICU with the [place] tube available. I prefer not to place it since I have some fear that this could disrupt the clips and restart life- threatening bleeding. If this patient; however, does develop life-threatening bleeding then this may our only choice. If this were to occur, then emergency transfer for a consideration of portal decompression procedures may be required.
--- NOTE | 2017-01-11 17:26 | OPERATIVE REPORT ---
DATE OF SURGERY: 01/11/2017 SURGEON: Sudhir Diallo MD PREOPERATIVE DIAGNOSIS: 1. Recurrent gastrointestinal bleed. POSTOPERATIVE DIAGNOSIS: 1. Variceal hemorrhage. PROCEDURE PERFORMED: 1. Upper gastrointestinal endoscopy with sclerotherapy and placement of endoscopic clips. ANESTHESIA: General. INDICATIONS: The patient is a 61-year-old man who presented with upper GI hemorrhage. He had an esophageal variceal banding about a week ago. He had just undergone endoscopy and was still in the endoscopy lab. At the first endoscopy an area of scarring and damage could be seen from the previous band, but it was not bleeding and the procedure was terminated. Before the patient woke up, the patient began frothing blood at the mouth and the patient was returned to the operating table, having never left the operating suite for this procedure. SURGICAL TECHNIQUE: The therapeutic endoscope was inserted down the esophagus. A large amount of clot was visible up near the GE junction. Suction and irrigation procedures were used to clear the active clot. This revealed that there was a site of active bleeding at the site of the old banding procedure where the trauma could be seen on the lateral wall of the esophagus close to the gastroesophageal junction. This area was somewhat sclerotic and did not lend itself to placement of a band directly over it. Therefore, sclerotherapy with 3 normal saline and 1:10,000 epinephrine was first attempted by injecting sequential injections around the site of active bleeding. This did not result in cessation or reduction in bleeding volume which was quite significant. The therapeutic endoscope was withdrawn and rigged up with a single shot band ligating device. In the meantime, a [place] tube was passed and set into place and inflated. This was left in for about 10 minutes while the other instrumentation was set up. The patient was also returned to his octreotide drip in the meantime. The [place] tube was withdrawn and the endoscope again passed. This demonstrated the site of active bleeding which had only slowed somewhat. The tissue was sucked up as much as possible and 2 bands were attempted, but could not adequately encompass the bleeding site. It seemed like the tissue was too sclerotic to adequately pull up into the clear plastic capsule and the 1 time when tissue was pulled in it seemed to be adjacent varix that came in instead of the actual bleeding source. The supervisor mattress and boxsprings was then discontinued. At this point, the patient was still hemorrhaging and was requiring transfusion and pressors for blood pressure support. The supervisor mattress and boxsprings device was removed and the therapeutic endoscope and Resolution Clips ([employer]) were used. These were deployed at 2 different locations. The first 1 was at the bleeding site, but appeared to be proximal to it slightly as there was still bleeding above it and the second clip was then placed above it. Once the second clip was in place the active fountaining of blood stopped and this seemed to have achieved the hemostasis that was required. This area was carefully observed and irrigated for some time to ensure that the adequacy of hemostasis, following which the endoscope was withdrawn. I discussed this current situation with Dr. Romero, our clothing trades workers. In this situation, I recommended that the patient be left on the standard medical therapeutics. We will send him up intubated to the ICU with the [place] tube available. I prefer not to place it since I have some fear that this could disrupt the clips and restart life- threatening bleeding. If this patient; however, does develop life-threatening bleeding then this may our only choice. If this were to occur, then emergency transfer for a consideration of portal decompression procedures may be required.
--- NOTE | 2017-01-11 18:15 | DIAGNOSTIC IMAGING REPORT ---
PROCEDURE: XR CHEST 1 VIEW INDICATION: Gastrointestinal bleeding. [place] tube placement, ET tube placement TECHNIQUE: Portable AP view (1750 hours). COMPARISON: Compared to chest x-ray earlier in the day (01/11/2017, 0905 hours) FINDINGS: Large bore [place] tube ends in upper stomach. ET tube in satisfactory position (5 cm above marissa). Left central line in superior vena cava. There is mild right basilar subsegmental atelectasis. Left lung is clear. Heart and mediastinum are normal. Thorax is normal. IMPRESSION: 1. Large bore [place] tube in stomach. 2. ET tube and left central line in satisfactory positions. 3. Mild right basilar subsegmental atelectasis. 4. Findings called to the intensive care unit.
--- NOTE | 2017-01-11 18:25 | Progress Note ---
Subjective General Note Date: January 11, 2017 Admission Date: January 11, 2017 Hospital Day: 1 PCP: Unknown Status: Inpatient Advanced Directive: Full Code Room: 306 Brief History: The patient is a 61-year-old white male with a significant past mental history of hepatitis C-status post treatment with LOULOU, cirrhosis, esophageal varices status post banding, gastroesophageal reflux who presented to [facility] emergency department on the day of admission secondary to complaints of hematemesis. [facility] ER evaluation was consistent with upper GI bleed secondary to suspected bleeding esophageal varices. Secondary to the above, the patient was admitted by Ifeanyi Healy M.D. for further evaluation and treatment. For other history present illness, past medical history, family history, social history, review of systems, and admission physical examination please see the patient's history and physical examination and ER visit note in the patient's medical record. Subjective: The patient underwent endoscopy but was noted to have bleeding following initial scoping. He had recurrent bleeding requiring follow-up endoscopy. No areas of which the band due to anatomy. Patient underwent injection therapy and clipping above and below with esophageal varices. Patient returned to ICU intubated. Patient requests: None Medications and Allergies Medications Current Medications Sig/Ian Start time Last Medication Dose Route Stop Time Status Admin Pantoprazole Sodium 80 MG 0600,1800 01/11 1800 AC IV Octreotide Acetate 300 MCG Q6H 01/11 0930 AC 01/11 Dextrose/Water 250 ML IV 1500 Ceftriaxone Sodium/ 50 ML DAILY 01/11 0845 AC 01/11 Dextrose IV 0914 Hydromorphone HCl 0.5 MG Q2H PRN 01/11 0830 CAN IV Hydromorphone HCl 0.5 MG Q4H PRN 01/11 0815 AC 01/11 IV 0914 Ondansetron HCl 4 MG Q4H PRN 01/11 0500 AC IV Sodium Chloride 1,000 ML ASDIRECTED 01/11 0500 AC 01/11 IV 0706 Allergies Coded Allergies: Bee Venom (Severe, Anaphylaxis 01/11/17) Penicillins (01/11/17) Allergies Penicillins. --03:12 Jatinder Perdomo R.N. Physical Exam Vital Signs / I&Os Vital Signs Date Time Temp Pulse Resp B/P Pulse O2 O2 Flow FiO2 Ox Delivery Rate 01/11 1740 92 18 88/59 100 Room Air 01/11 1730 92 18 79/45 100 Room Air 04/02 1720 92 17 66/41 100 Room Air 04/02 1715 95.9 94 18 81/49 100 Room Air 04/02 1700 95 19 84/47 100 Room Air 04/02 1658 96.3 96 18 79/45 100 Room Air 04/02 1646 96.3 98 6 70/41 100 Room Air 04/02 1328 68 16 104/61 97 Room Air 04/ 1239 66 17 107/69 98 Room Air 04/02 1022 97.9 04/ 1022 63 16 107/58 98 Room Air 04/02 0917 78 18 119/79 98 Room Air 04/02 0841 68 16 108/63 98 Room Air 04/02 0711 75 17 112/70 98 Room Air 04/02 0554 97.9 69 17 130/79 100 Room Air General Appearance intubated, unresponsive Lungs Breath sounds equal Cardiovascular Regular rate and rhythm, Normal S1 and S2 Abdomen Normal bowel sounds, Soft, Mild distention Extremities No cyanosis, No clubbing LAB Results Laboratory Tests 01/11 01/11 01/11 01/11 01/11 1800 1205 1200 0900 0900 Chemistry Plasma Sodium (136 - 145 mmol/L) 146 Plasma Potassium (3.5 - 5.1 mmol/L) 4.3 Plasma Chloride (98 - 107 mmol/L) 113 CO2 (Enzymatic) (21 - 32 mmol/L) 24 BUN (7 - 18 mg/dL) 24 Creatinine (0.6 - 1.3 mg/dL) 0.8 Est GFR ( Amer) (mL/min) >60 Est GFR (Non-Af Amer) (mL/min) >60 Glucose (70 - 110 mg/dL) 120 Plasma Calcium (8.5 - 10.1 mg/dL) 8.2 Iron (35 - 150 ug/dL) 48 TIBC (260 - 445 ug/dL) 338 Iron Saturation (15 - 50 %) 14 Vitamin B12 (211 - 946 pg/mL) 314 Folate (>3.0 ng/mL) 38.4 Hematology Hgb (13.5 - 17.5 gm/dL) Cancelled 8.9 Cancelled 9.3 Hct (41.0 - 53.0 %) Cancelled 27.0 Cancelled 28.2 01/11 0325 Chemistry Plasma Sodium (136 - 145 mmol/L) 147 Plasma Potassium (3.5 - 5.1 mmol/L) 3.5 Plasma Chloride (98 - 107 mmol/L) 113 CO2 (Enzymatic) (21 - 32 mmol/L) 24 BUN (7 - 18 mg/dL) 25 Creatinine (0.6 - 1.3 mg/dL) 0.9 Est GFR ( Amer) (mL/min) >60 Est GFR (Non-Af Amer) (mL/min) >60 Glucose (70 - 110 mg/dL) 117 Plasma Calcium (8.5 - 10.1 mg/dL) 8.2 Total Bilirubin (0.0 - 1.0 mg/dL) 0.3 AST (15 - 37 U/L) 13 ALT (12 - 78 U/L) 17 Alkaline Phosphatase (46 - 116 U/L) 67 Total Protein (6.4 - 8.2 g/dL) 6.0 Albumin (3.3 - 5.0 g/dL) 2.9 Coagulation INR (0.8 - 1.2) 1.3 Hematology WBC (4.5 - 11.5 K/uL) 3.3 RBC (4.50 - 5.90 M/uL) 3.45 Hgb (13.5 - 17.5 gm/dL) 10.1 Hct (41.0 - 53.0 %) 30.6 MCV (80 - 100 fL) 89 MCH (26 - 34 pg) 29 RDW (11.6 - 14.8 %) 15.5 Neut % (Auto) (50 - 75 %) 64.6 Lymph % (Auto) (25 - 40 %) 22.8 [place] % (Auto) (3 - 14 %) 9.0 Eos % (Auto) (0 - 4 %) 3.3 Baso % (Auto) (0 - 2 %) 0.3 Plt Count, EDTA (150 - 400 K/uL) 88 PUBS MCHC (31 - 37 g/dL) 33 Microbiology Date/Time Procedure - Status Source Growth 01/11 0600 MRSA Screen - RECD NASAL Assessment and Plan Problem List 1. Upper GI bleed Plan -Patient returned from alcohol with recurrent upper GI bleeding from esophageal varices -This was associated with hypotension -Patient intubated with mechanical ventilation -[place] ([place]) 4-lumen to past. Gastric balloon inflated to 400 cc, esophageal tube inflated with good hemostasis. -Patient received 6 units packed RBCs, 2 units fresh frozen plasma, 1-6 pack platelets. -Dr. Merrick Stevenson M.D. contacted at [facility] will take the patient in transfer. 2. Esophageal varices Plan -See above -Attempts at injection of therapy unsuccessful, no area to band for surgery, clips placed above and below bleeding area with initial hemostasis -Patient treated with octreotide drip, IV PPI, Levophed for blood pressure support -Plan transfer to [facility], GI evaluation, possible TIPS procedure 3. Anemia Status Acute Onset Date Unknown Plan -Patient with anemia secondary to upper GI bleed from esophageal varices -6 units packed RBCs administered -Monitor -Transferred to [facility] 4. Hypotension Status Acute Onset Date 01/11/17 Plan -Patient developed hypotension postoperatively -Patient required vigorous IV fluid support, transfusion of 6 units packed RBCs, 2 units fresh [place] plasma, one 6 pack platelets. -Levophed IV for pressure support Current status: Critical, unstable Anticipated discharge date: Today-transfer to [facility] ICU Anticipated discharge placement: See above Patient care time: Time spent in chart review, patient interview, physical exam, CPOE, and care documentation: 120 minutes minutes Visit to patient today: 3 Complexity of care: High 120 minutes ICU time devoted to care of patient. This included record review, consultation with surgical specialists, physical examination, CPOE, documentation of patient's status, arrangements for transfer to [facility], discussion with [facility] ICU attending, discussions with family, and ongoing bedside evaluation and treatment of this patient only. E&M Codes Critical Care: 30-74 min/[id number], Each add'l 30 min/[id number]
--- NOTE | 2017-01-11 18:25 | Progress Note ---
Subjective General Note Date: January 11, 2017 Admission Date: January 11, 2017 Hospital Day: 1 PCP: Unknown Status: Inpatient Advanced Directive: Full Code Room: 306 Brief History: The patient is a 61-year-old white male with a significant past mental history of hepatitis C-status post treatment with LOULOU, cirrhosis, esophageal varices status post banding, gastroesophageal reflux who presented to [facility] emergency department on the day of admission secondary to complaints of hematemesis. [facility] ER evaluation was consistent with upper GI bleed secondary to suspected bleeding esophageal varices. Secondary to the above, the patient was admitted by Ifeanyi Healy M.D. for further evaluation and treatment. For other history present illness, past medical history, family history, social history, review of systems, and admission physical examination please see the patient's history and physical examination and ER visit note in the patient's medical record. Subjective: The patient underwent endoscopy but was noted to have bleeding following initial scoping. He had recurrent bleeding requiring follow-up endoscopy. No areas of which the band due to anatomy. Patient underwent injection therapy and clipping above and below with esophageal varices. Patient returned to ICU intubated. Patient requests: None Medications and Allergies Medications Current Medications Sig/Ian Start time Last Medication Dose Route Stop Time Status Admin Pantoprazole Sodium 80 MG 0600,1800 01/11 1800 AC IV Octreotide Acetate 300 MCG Q6H 01/11 0930 AC 01/11 Dextrose/Water 250 ML IV 1500 Ceftriaxone Sodium/ 50 ML DAILY 01/11 0845 AC 01/11 Dextrose IV 0914 Hydromorphone HCl 0.5 MG Q2H PRN 01/11 0830 CAN IV Hydromorphone HCl 0.5 MG Q4H PRN 01/11 0815 AC 01/11 IV 0914 Ondansetron HCl 4 MG Q4H PRN 01/11 0500 AC IV Sodium Chloride 1,000 ML ASDIRECTED 01/11 0500 AC 01/11 IV 0706 Allergies Coded Allergies: Bee Venom (Severe, Anaphylaxis 01/11/17) Penicillins (01/11/17) Allergies Penicillins. --03:12 Jatinder Perdomo R.N. Physical Exam Vital Signs / I&Os Vital Signs Date Time Temp Pulse Resp B/P Pulse O2 O2 Flow FiO2 Ox Delivery Rate 01/11 1740 92 18 88/59 100 Room Air 01/11 1730 92 18 79/45 100 Room Air 04/02 1720 92 17 66/41 100 Room Air 04/02 1715 95.9 94 18 81/49 100 Room Air 04/02 1700 95 19 84/47 100 Room Air 04/02 1658 96.3 96 18 79/45 100 Room Air 04/02 1646 96.3 98 6 70/41 100 Room Air 04/02 1328 68 16 104/61 97 Room Air 04/ 1239 66 17 107/69 98 Room Air 04/02 1022 97.9 04/ 1022 63 16 107/58 98 Room Air 04/02 0917 78 18 119/79 98 Room Air 04/02 0841 68 16 108/63 98 Room Air 04/02 0711 75 17 112/70 98 Room Air 04/02 0554 97.9 69 17 130/79 100 Room Air General Appearance intubated, unresponsive Lungs Breath sounds equal Cardiovascular Regular rate and rhythm, Normal S1 and S2 Abdomen Normal bowel sounds, Soft, Mild distention Extremities No cyanosis, No clubbing LAB Results Laboratory Tests 01/11 01/11 01/11 01/11 01/11 1800 1205 1200 0900 0900 Chemistry Plasma Sodium (136 - 145 mmol/L) 146 Plasma Potassium (3.5 - 5.1 mmol/L) 4.3 Plasma Chloride (98 - 107 mmol/L) 113 CO2 (Enzymatic) (21 - 32 mmol/L) 24 BUN (7 - 18 mg/dL) 24 Creatinine (0.6 - 1.3 mg/dL) 0.8 Est GFR ( Amer) (mL/min) >60 Est GFR (Non-Af Amer) (mL/min) >60 Glucose (70 - 110 mg/dL) 120 Plasma Calcium (8.5 - 10.1 mg/dL) 8.2 Iron (35 - 150 ug/dL) 48 TIBC (260 - 445 ug/dL) 338 Iron Saturation (15 - 50 %) 14 Vitamin B12 (211 - 946 pg/mL) 314 Folate (>3.0 ng/mL) 38.4 Hematology Hgb (13.5 - 17.5 gm/dL) Cancelled 8.9 Cancelled 9.3 Hct (41.0 - 53.0 %) Cancelled 27.0 Cancelled 28.2 01/11 0325 Chemistry Plasma Sodium (136 - 145 mmol/L) 147 Plasma Potassium (3.5 - 5.1 mmol/L) 3.5 Plasma Chloride (98 - 107 mmol/L) 113 CO2 (Enzymatic) (21 - 32 mmol/L) 24 BUN (7 - 18 mg/dL) 25 Creatinine (0.6 - 1.3 mg/dL) 0.9 Est GFR ( Amer) (mL/min) >60 Est GFR (Non-Af Amer) (mL/min) >60 Glucose (70 - 110 mg/dL) 117 Plasma Calcium (8.5 - 10.1 mg/dL) 8.2 Total Bilirubin (0.0 - 1.0 mg/dL) 0.3 AST (15 - 37 U/L) 13 ALT (12 - 78 U/L) 17 Alkaline Phosphatase (46 - 116 U/L) 67 Total Protein (6.4 - 8.2 g/dL) 6.0 Albumin (3.3 - 5.0 g/dL) 2.9 Coagulation INR (0.8 - 1.2) 1.3 Hematology WBC (4.5 - 11.5 K/uL) 3.3 RBC (4.50 - 5.90 M/uL) 3.45 Hgb (13.5 - 17.5 gm/dL) 10.1 Hct (41.0 - 53.0 %) 30.6 MCV (80 - 100 fL) 89 MCH (26 - 34 pg) 29 RDW (11.6 - 14.8 %) 15.5 Neut % (Auto) (50 - 75 %) 64.6 Lymph % (Auto) (25 - 40 %) 22.8 [place] % (Auto) (3 - 14 %) 9.0 Eos % (Auto) (0 - 4 %) 3.3 Baso % (Auto) (0 - 2 %) 0.3 Plt Count, EDTA (150 - 400 K/uL) 88 PUBS MCHC (31 - 37 g/dL) 33 Microbiology Date/Time Procedure - Status Source Growth 01/11 0600 MRSA Screen - RECD NASAL Assessment and Plan Problem List 1. Upper GI bleed Plan -Patient returned from alcohol with recurrent upper GI bleeding from esophageal varices -This was associated with hypotension -Patient intubated with mechanical ventilation -[place] ([place]) 4-lumen to past. Gastric balloon inflated to 400 cc, esophageal tube inflated with good hemostasis. -Patient received 6 units packed RBCs, 2 units fresh frozen plasma, 1-6 pack platelets. -Dr. Merrick Stevenson M.D. contacted at [facility] will take the patient in transfer. 2. Esophageal varices Plan -See above -Attempts at injection of therapy unsuccessful, no area to band for surgery, clips placed above and below bleeding area with initial hemostasis -Patient treated with octreotide drip, IV PPI, Levophed for blood pressure support -Plan transfer to [facility], GI evaluation, possible TIPS procedure 3. Anemia Status Acute Onset Date Unknown Plan -Patient with anemia secondary to upper GI bleed from esophageal varices -6 units packed RBCs administered -Monitor -Transferred to [facility] 4. Hypotension Status Acute Onset Date 01/11/17 Plan -Patient developed hypotension postoperatively -Patient required vigorous IV fluid support, transfusion of 6 units packed RBCs, 2 units fresh Balbuena plasma, one 6 pack platelets. -Levophed IV for pressure support Current status: Critical, unstable Anticipated discharge date: Today-transfer to [facility] ICU Anticipated discharge placement: See above Patient care time: Time spent in chart review, patient interview, physical exam, CPOE, and care documentation: 120 minutes minutes Visit to patient today: 3 Complexity of care: High 120 minutes ICU time devoted to care of patient. This included record review, consultation with surgical specialists, physical examination, CPOE, documentation of patient's status, arrangements for transfer to [facility], discussion with [facility] ICU attending, discussions with family, and ongoing bedside evaluation and treatment of this patient only. E&M Codes Critical Care: 30-74 min/09672, Each add'l 30 min/03126
--- NOTE | 2017-01-11 18:37 | OPERATIVE REPORT ---
DATE OF SURGERY: 01/11/2017 SURGEON: Sudhir Diallo MD PREOPERATIVE DIAGNOSIS: 1. Variceal hemorrhage POSTOPERATIVE DIAGNOSIS: 1. Variceal hemorrhage PROCEDURES PERFORMED: 1. Left subclavian triple-lumen placement 2. Assistance in placing of [place] tube INDICATIONS: The requesting physician is Dr. Romero. I had recently done endoscopic procedures on this patient with placement of endoscopic clips. After the patient arrived in the intensive care unit, he began developing hypotension and evidence of gastrointestinal bleeding on a recurrent basis. For this reason, I was asked her to come back to see him to assist Dr. Romero in the management of his procedures. SURGICAL TECHNIQUE: At the time, I arrived, Dr. Romero was in the process of placing the [place] tube but required assistance and advice on the deployment. I assisted him with placing the [place] tube. We inflated the distal balloon to 400 mL and pulled it back into position, after which the upper balloon was inflated to fingertip tension pending the results of a pressure measurement. This appeared to result in cessation of bleeding from the gastric or proximal esophageal tubes, which were then placed to low suction. The patient was placed with a 500 mL bag over the edge of the bed for traction. I was then asked to place a central line since the patient had poor venous access. The patient was placed in Trendelenburg position and the left and anterior chest sterilely prepped and draped. The Arrow triple-lumen kit was used. A local anesthetic of 1% Xylocaine with epinephrine was infiltrated and an 18-gauge thin-walled needle was used to access the vein on second pass. Seldinger technique was used to place the triple-lumen sheath in the superior vena cava at 15 cm. It was secured with the antibacterial stick-on cuff and the enclosed suture and secured in position. All ports were flushed with heparin solution and capped. A chest x-ray was reviewed at the conclusion of the procedure, demonstrating placement of the tip of this catheter in the superior vena cava and no evidence of pneumothorax.
--- NOTE | 2017-01-11 18:39 | Provider's Discharge Care Plan ---
Problem, Goal, Plan Problem List 1. Esophageal varices Goals: Improve disease control, Prevent disease progress Instructions: Follow up as directed 2. Upper GI bleed Goals: Improve disease control, Prevent disease progress Instructions: Follow up as directed
--- NOTE | 2017-01-11 18:50 | Discharge Summary ---
Discharge Summary Report Admit Date 01/11/17 Discharge Date 01/11/17 Admission Diagnosis 1. Upper GI bleed 2. 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 Upper GI bleed 2. 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 [facility] ER evaluation was consistent with upper GI bleed secondary to suspected bleeding esophageal varices. Secondary to the above, the patient was admitted by Ifeanyi Healy M.D. for further evaluation and treatment. For other history present illness, past medical history, family history, social history, review of systems, and admission physical examination please see the patient's history and physical examination and ER visit note in the patient's medical record. Hospital Course The following problems and their management were noted during the patient's hospitalization: 1. Upper GI bleed The patient was admitted with findings of upper GI bleed. He was treated with octreotide/IV Protonix. He underwent upper endoscopy which revealed previous esophageal variceal banding and subsequently developed recurrent bleeding at previous banding site. Dr. Sudhir Diallo attempted injectable therapy. No area of banding was available. He then attempted clipping above and below variceal bleeding site. This provided temporary relief of bleeding with hemostasis only to have the patient have recurrent bleeding developed upon return to the medical intensive care unit. [facility] [place] [facility] was placed with good hemostasis. The patient developed hypotensive and required vigorous IV fluid therapy and pressors in the form of Levophed drip. He received 6 units of packed RBCs, 2 units fresh frozen plasma (admission INR 1.3) and one 6 pack platelets prior to discharge. Secondary to recurrent bleeding from esophageal varices was felt the patient required transfer to higher level of care. [facility] was contacted and the case was discussed with Merrick Stevenson M.D. (ICU attending right). It was agreed that the patient should be transferred to their ICU with GI evaluation. COBRA form was completed. The patient's was in agreement with transfer following discussion of the risk and benefits of such transfer. The patient will be transferred by ALS ambulance. 2. 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 It is undergone previous treatment with no evidence of disease according to patient. He did develop cirrhosis secondary to his hepatitis C. No further evaluation was undertaken during the patient's hospitalization. 4. Hypotension The patient developed hypotension following endoscopy. He required vigorous IV fluid support, transfusional therapy, pressor support with Levophed. Blood pressure normal at time of discharge. Lab/Imaging Laboratory Tests 01/11 01/11 01/11 01/11 01/11 1800 1205 1200 0900 0900 Chemistry Plasma Sodium (136 - 145 mmol/L) 146 Plasma Potassium (3.5 - 5.1 mmol/L) 4.3 Plasma Chloride (98 - 107 mmol/L) 113 CO2 (Enzymatic) (21 - 32 mmol/L) 24 BUN (7 - 18 mg/dL) 24 Creatinine (0.6 - 1.3 mg/dL) 0.8 Est GFR ( Amer) (mL/min) >60 Est GFR (Non-Af Amer) (mL/min) >60 Glucose (70 - 110 mg/dL) 120 Plasma Calcium (8.5 - 10.1 mg/dL) 8.2 Iron (35 - 150 ug/dL) 48 TIBC (260 - 445 ug/dL) 338 Iron Saturation (15 - 50 %) 14 Vitamin B12 (211 - 946 pg/mL) 314 Folate (>3.0 ng/mL) 38.4 Hematology Hgb (13.5 - 17.5 gm/dL) Cancelled 8.9 Cancelled 9.3 Hct (41.0 - 53.0 %) Cancelled 27.0 Cancelled 28.2 01/11 0325 Chemistry Plasma Sodium (136 - 145 mmol/L) 147 Plasma Potassium (3.5 - 5.1 mmol/L) 3.5 Plasma Chloride (98 - 107 mmol/L) 113 CO2 (Enzymatic) (21 - 32 mmol/L) 24 BUN (7 - 18 mg/dL) 25 Creatinine (0.6 - 1.3 mg/dL) 0.9 Est GFR ( Amer) (mL/min) >60 Est GFR (Non-Af Amer) (mL/min) >60 Glucose (70 - 110 mg/dL) 117 Plasma Calcium (8.5 - 10.1 mg/dL) 8.2 Total Bilirubin (0.0 - 1.0 mg/dL) 0.3 AST (15 - 37 U/L) 13 ALT (12 - 78 U/L) 17 Alkaline Phosphatase (46 - 116 U/L) 67 Total Protein (6.4 - 8.2 g/dL) 6.0 Albumin (3.3 - 5.0 g/dL) 2.9 Coagulation INR (0.8 - 1.2) 1.3 Hematology WBC (4.5 - 11.5 K/uL) 3.3 RBC (4.50 - 5.90 M/uL) 3.45 Hgb (13.5 - 17.5 gm/dL) 10.1 Hct (41.0 - 53.0 %) 30.6 MCV (80 - 100 fL) 89 MCH (26 - 34 pg) 29 RDW (11.6 - 14.8 %) 15.5 Neut % (Auto) (50 - 75 %) 64.6 Lymph % (Auto) (25 - 40 %) 22.8 [place] % (Auto) (3 - 14 %) 9.0 Eos % (Auto) (0 - 4 %) 3.3 Baso % (Auto) (0 - 2 %) 0.3 Plt Count, EDTA (150 - 400 K/uL) 88 PUBS MCHC (31 - 37 g/dL) 33 Microbiology Date/Time Procedure - Status Source Growth 01/11 0600 MRSA Screen - RECD NASAL Discharge Instructions/Meds Discharge condition: Critical, unstable 120 min. was spent in the patient's discharge preparation including critical care time, discharge interview and physical examination, progress note, discharge instructions, and discharge summary The patient was interviewed and examined on the day of discharge.
== END 2017-01-11 19:50 | disposition short-term general hospital (02) | DRG 981 ==
LOC: ED SRH 03:07 → TRANS SRH 04:49 → CC SRH 05:50
PROVIDERS: Surgery; ADMIT Emergency Medicine
PROC: 0W3P7ZZ Control Bleeding in Gastrointestinal Tract, Via Natural or Artificial Opening (ICD-10-PCS; 2017-01-11)
PROC: 30233N1 Transfusion of Nonautologous Red Blood Cells into Peripheral Vein, Percutaneous Approach (ICD-10-PCS; 2017-01-11)
PROC: 30233K1 Transfusion of Nonautologous Frozen Plasma into Peripheral Vein, Percutaneous Approach (ICD-10-PCS; 2017-01-11)
PROC: 0DJ08ZZ Inspection of Upper Intestinal Tract, Via Natural or Artificial Opening Endoscopic (ICD-10-PCS; 2017-01-11)
PROC: 30233R1 Transfusion of Nonautologous Platelets into Peripheral Vein, Percutaneous Approach (ICD-10-PCS; 2017-01-11)
PROC: 30233N1 Transfusion of Nonautologous Red Blood Cells into Peripheral Vein, Percutaneous Approach (ICD-10-PCS; 2017-01-11)
PROC: 3E0G8TZ Introduction of Destructive Agent into Upper GI, Via Natural or Artificial Opening Endoscopic (ICD-10-PCS; principal; 2017-01-11 14:00)
PROC: 02HV33Z Insertion of Infusion Device into Superior Vena Cava, Percutaneous Approach (ICD-10-PCS; principal; 2017-01-11 14:00)
PROC: 0W3P8ZZ Control Bleeding in Gastrointestinal Tract, Via Natural or Artificial Opening Endoscopic (ICD-10-PCS; principal; 2017-01-11 14:00)
DX: K74.69 Other cirrhosis of liver (principal); I85.11 Secondary esophageal varices with bleeding; K76.6 Portal hypertension; D62 Acute posthemorrhagic anemia; K91.840 Postprocedural hemorrhage of a digestive system organ or structure following a digestive system procedure; I95.9 Hypotension, unspecified; D69.59 Other secondary thrombocytopenia; Z86.19 Personal history of other infectious and parasitic diseases; Z96.89 Presence of other specified functional implants
CPT/HCPCS: 50004; 70002; 80102; 80212; 81240; 83101; 83222; 83475; 83526; 83872; 90001; 90047; 90074; 90100; 90155; 91004; 91162; 91163; 91504; 91505; 91544; 91672; 92132; 92668; 92670; 94060; 95059